=== PATIENT | female | born 1970 | race Caucasian/White ===

== ENCOUNTER → 2018-12-28 | Outpatient (CLI) | payer BC ==
[~2018-12-28] MED LIST: BLAC20TA PO; FEXO180T81 PO; MELA3TAB2 PO; OMEP20CA10 PO; PSEU120T9 PO; VIT500LI PO; VITA1TAB19 PO
[2018-12-28 14:47] LABS: BASO # 0.1 x10^3/uL (0.0-0.2); BASO % 1 % (0-3); EOS # 0.4 x10^3/uL (0.0-0.7); EOS % 9 % (0-3); HEMATOCRIT 40.4 % (36.0-47.0); HEMOGLOBIN 13.6 g/dL (12.0-15.5); LYMPH # 1.7 x10^3/uL (1.0-4.8); LYMPH % 33 % (24-48); MEAN CORPUSCULAR HEMOGLOBIN 28 pg (25-35); MEAN CORPUSCULAR HGB CONC 34 g/dL (31-37); MEAN CORPUSCULAR VOLUME 82 fL (79-100); MONO # 0.4 x10^3/uL (0.0-1.1); MONO % 7 % (0-9); NEUT # 2.5 x10^3uL (1.8-7.7); NEUT % 50 % (31-73); PLATELET COUNT 148 x10^3/uL (140-400); RED BLOOD COUNT 4.95 x10^6/uL (3.50-5.40); RED CELL DISTRIBUTION WIDTH 14.9 % (11.5-14.5)
[2018-12-28 14:50] LABS: BILIRUBIN,URINE NEGATIVE (NEG); CLARITY,URINE CLEAR; COLOR,URINE YELLOW; NITRITE,URINE NEGATIVE (NEG); PROTEIN,URINE NEGATIVE (NEG-TRACE); UROBILINOGEN,URINE 0.2 mg/dL (0.2 mg/dL)
--- NOTE | 2018-12-28 14:53 | EKG ---
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 No previous ECG available for comparison Electronically Signed On 12-30-2018 14:11:56 CDT by Neil Bashir
[2018-12-28 14:58] LABS: BACTERIA,URINE FEW /HPF (0-FEW); RBC,URINE 0 /HPF (0-2); SQUAMOUS EPITHELIAL CELL,UR FEW /LPF; WBC,URINE RARE /HPF (0-4)
[2018-12-28 15:11] LABS: ALBUMIN 3.7 g/dL (3.4-5.0); ALBUMIN/GLOBULIN RATIO 1.1 (1.0-1.7); CREATININE 0.8 mg/dL (0.6-1.0); GFR 75.9; POTASSIUM 3.5 mmol/L (3.5-5.1); TOTAL BILIRUBIN 0.4 mg/dL (0.2-1.0)
--- NOTE | 2019-01-04 10:23 | NUR ---
FAXED PRE-OP TEST REPORTS TO 'S OFFICE FOR REVIEW 12/29/2018 AT 1209 AND RECEIVED TRANSMITTAL CONFIRMATION. PRELIMINARY EKG REPORT WAS REVIEWED BY WALDEMAR MARIE RN,ANESTHESIA TEAM 12/29/2018 AT 1205 AND WAS OKAY,ALSO FINAL REPORT IN 01/01/2019 AT 1035 AND WAS OKAY TOO. [facility] AT 'S OFFICE CALLED BACK 12/29/2018 AT 1730 AND NOTIFIED OF FAXING PRE OP TEST REPORTS ALONG WITH WALDEMAR MARIE RN REVIEWED EKG STATED ABOVE. FAXED EKG AND URINE CULTURE'S FINAL REPORTS TO 'S OFFICE 01/01/2019 AT 0950 AND RECEIVED TRANSMITTAL CONFIRMATION.
== END | disposition home or self-care (01) ==
LOC: SURGPAT 13:59
PROVIDERS: ATTEND Obstetrics & Gynecology
DX: Z01.818 Encounter for other preprocedural examination (principal); R94.31 Abnormal electrocardiogram [ECG] [EKG]
CPT/HCPCS: 36415; 80053; 81001; 85025; 87086; 93005

== ENCOUNTER 2019-01-07 07:04 | Observation (INO) | payer BC ==
[2019-01-07] VITALS (7 sets, daily range): BP systolic 99–126; BP diastolic 45–128
[~2019-01-07] VITALS: Ht 162.6 cm; Wt 80.2 kg
[~2019-01-07 07:04] MED LIST changes: +HYDROmorphone 2 MG/ML VIAL IV PRN; +LIDOCAINE 1% PF 2 ML VIAL. ID PRN; +MORPHINE SULFATE 2 MG/ML VIAL. IV PRN; +ONDANSETRON PF 4 MG/2 ML VIAL. IV PRN; +PROCHLORPERAZINE 10 MG/2 ML VIAL. IV PRN; +fentaNYL PF VIAL 100 MCG/2 ML VIAL IV PRN
[2019-01-07] MEDS ORDERED: BUPIVACAINE-EPI 0.25%-1:200000 MPF 30 ML VIAL. ONE (07:09)
[2019-01-07] MEDS ORDERED: ESTROGENS, CONJ VAGINAL CREAM 30GM TUBE. ONE (07:09)
[2019-01-07] MEDS: IV RINGERS,LACTATED 1000ML 1,000 ML IV SCH ×2 (07:40→11:52)
[2019-01-07] MEDS ORDERED: fentaNYL PF VIAL 100 MCG/2 ML VIAL ONE (08:00)
[2019-01-07] MEDS ORDERED: ONDANSETRON PF 4 MG/2 ML VIAL. ONE (08:00)
[2019-01-07] MEDS ORDERED: PROPOFOL 20 ML IV ONE (08:00)
[2019-01-07] MEDS ORDERED: DEXAMETHASONE SOD PHOS 4 MG/ML VIAL ONE (08:00)
[2019-01-07] MEDS ORDERED: ROCURONIUM 100 MG/10 ML VIAL. ONE (08:01)
[2019-01-07] MEDS ORDERED: INDIGOTINDISULFONATE SODIUM 40 MG/5 ML AMPUL. IV ONE (09:00)
[2019-01-07 10:42] LABS: U PREG PATIENT NEGATIVE (NEG)
[2019-01-07] MEDS ORDERED: MAG HYDROX/ALUMINUM HYD/SIMETH 30 ML ORAL.SUSP PO PRN (10:45)
[2019-01-07] MEDS ORDERED: ONDANSETRON PF 4 MG/2 ML VIAL. IV PRN (10:45)
[2019-01-07] MEDS ORDERED: ZOLPIDEM 5 MG TABLET. PO PRN (10:45)
[2019-01-07] MEDS ORDERED: NALOXONE 0.4 MG/ML VIAL. IV PRN (10:45)
[2019-01-07] MEDS ORDERED: 0.9 % SODIUM CHLORIDE 10 ML DISP.SYRIN. IV PRN (10:45)
[2019-01-07] MEDS ORDERED: MAGNESIUM HYDROXIDE 2,400 MG/30 ML ORAL.SUSP. PO PRN (10:45)
[2019-01-07] MEDS ORDERED: CALCIUM CARBONATE 500 MG TAB.CHEW PO PRN (10:45)
[2019-01-07] MEDS ORDERED: diphenhydrAMINE HCL 25 MG CAPSULE PO PRN (10:45)
[2019-01-07] MEDS ORDERED: SIMETHICONE 80 MG TAB.CHEW PO PRN (10:45)
[2019-01-07] MEDS ORDERED: LACTULOSE 20 GM/30 ML SOLUTION. PO PRN (10:45)
[2019-01-07] MEDS ORDERED: diphenhydrAMINE 50 MG/ML VIAL IV PRN (10:45)
[2019-01-07] MEDS ORDERED: MORPHINE SULFATE 2 MG/ML VIAL. IV PRN (10:45)
--- NOTE | 2019-01-07 10:45 | PDOC ---
BRIEF OPERATIVE NOTE Date: Jan 07, 2019 Pre-Op Diagnosis menorrhagia, fibroids Post-Op Diagnosis same Procedure Performed LAVH/bilateral salpingectomy Surgeon Dr. Katherine Cespedes Salesperson [employer] CHRISTINA Colmenares Anesthesiologist Dr. Elliott Anesthesia Type: General Blood Loss 60cc IV Fluid 400cc Urine Output 100cc clear via crowe Specimens Obtained cervix, uterus, bilateral tubes Findings enlarged RV uterus, evidence of fallop rings with prior sterilization, some left sided adhesions to tube and post cul de sac, normal bilateral ovaries Complications none Operative Note [id number] KATHERINE CESPEDES MD Jan 07, 2019 10:45
[2019-01-07] MEDS: fentaNYL PF VIAL 100 MCG/2 ML VIAL IV PRN ×2 (11:16→11:44)
--- NOTE | 2019-01-07 12:24 | OP ---
DATE OF SURGERY: 01/07/2019 PREOPERATIVE DIAGNOSES: Menorrhagia and enlarged fibroid uterus. POSTOPERATIVE DIAGNOSES: Menorrhagia and enlarged fibroid uterus. PROCEDURE: Laparoscopic-assisted vaginal hysterectomy, bilateral salpingectomy. SURGEON: Rodger Cespedes M.D. MIXER CRANE OPERATOR: first radha Colmenares. ANESTHESIOLOGIST: Cordell Elliott MD. ANESTHESIA: General. ESTIMATED BLOOD LOSS: 60 mL. URINE OUTPUT: 100 mL clear via Selby catheter. IV FLUIDS: 400 mL of crystalloid. SPECIMENS: Cervix, uterus, bilateral tubes. FINDINGS: Enlarged retroverted uterus, evidence of prior sterilization with Falope rings, some left-sided adhesions to the left tube and cul-de-sac, normal bilateral ovaries. COMPLICATIONS: None. DESCRIPTION OF PROCEDURE: This patient was taken to the operating room where general anesthesia was placed. The patient was placed in dorsal lithotomy position in [facility]. The patient's abdomen and vagina were prepped and draped in the normal sterile fashion and a Selby catheter had been inserted under sterile technique. Upon my arrival, a timeout was performed. Once everyone agreed and she had received her preoperative antibiotics, a bivalve speculum was placed in the patient's vagina. A single-tooth tenaculum was used to grasp the anterior lip of the cervix. A 10 mL of 0.25% Marcaine with epinephrine was used to circumferentially inject around the cervix for both hemodissection and hemostatic purposes later. The Valtchev uterine manipulator was placed through the endocervical os, locked on the single tooth tenaculum and the bivalve speculum was then removed. Top gloves were discarded and changed. Attention was then turned to the abdomen. A supraumbilical skin incision was made with the scalpel. A curved Debo was used to dissect through the subcuticular layer to the fascia. The 5 mm Visiport was used to directly enter the abdominal cavity. Opening patient pressure was 4-5 mmHg. Carbon dioxide gas was used to then appropriately insufflate the abdominal cavity to maintain a pressure of 15 mmHg. The patient was placed in Trendelenburg position. Right and left lower quadrant ports were placed under direct visualization, making sure they were clear on the inside, transilluminating the anterior abdominal wall with the light, making a small incision and placing the 5 mm trocar under direct visualization without difficulty. A 4-5 mL of air was placed in the cuff of the trocar. The camera was then moved to the lateral port to examine the midline port. It was clear and the air was used to insufflate the cuff on this port as well. At this point, the left tube and ovary were identified. Again, you could see prior evidence of Falope ring sterilization. The tube was elevated, you could see the ureter coursing below the ovaries on both sides as well. So going below the tube, above the ovary, preserving the ovaries per patient request, a salpingectomy was performed with the LigaSure, then crossing the left uterine ovarian pedicle and the left round ligament. The bladder flap was started sharply on this side. Once we got through the round ligament and taking down the anterior bladder peritoneum. This was done exactly the same on the right side, elevating the right tube and ovary, finding the ureter, going above the ovary, below the tube as it was normal and the patient wished to retain her ovaries, doing a salpingectomy with the LigaSure, cauterizing and cutting, crossing the right uterine ovarian pedicle and then the right round ligament, going down and further meeting that bladder flap, obtaining the uterine vasculature on both sides, and then going down through the cardinal and broad ligaments to the level of the uterosacrals. There were some mild adhesions posteriorly on the left side, but the center was clear where we are going to do the colpotomy. So, I did leave it as it was lateral, but the uterus was free and blanched. So, all instruments were removed from the abdomen and attention was turned vaginally. At this point, the single tooth and Valtchev were removed. The patient's legs were elevated in a high lithotomy and weighted speculum was placed in the patient's vagina. Thyroid Kaitlyn clamps were placed on the anterior and posterior lips of the cervix respectively. A scalpel was used to make a circumferential incision in the cervix. An open Ray-Marisol 4 x 4 was used to gently push up the anterior bladder peritoneum. Posterior cul-de-sac was sharply entered with the curved Knight scissors and a #0 Vicryl stitch was used to secure the posterior peritoneum here to the vaginal cuff. It was tagged with a curved Debo clamp. The needle was cut and passed off. The short weighted vaginal speculum was removed and replaced with the long weighted Suraj speculum in the posterior cul-de-sac. At this point, curved Angelita clamps x 2 were placed on the patient's left uterosacral ligament where they were doubly clamped with curved Angelita's, cut with Knight scissors and suture ligated x 2 with 0 Vicryl. Second one was taken through the vaginal cuff securing uterosacral ligament to the vaginal cuff, tagging it with a straight Debo clamp, cutting and passing the needle off. This was done exactly the same on the patient's right side, double clamping the uterosacrals with curved Angelita's, cutting with curved Knight scissors and suture ligating x 2 with 0 Vicryl, taking the second one through the vaginal cuff securing uterosacral ligament to the vaginal cuff, tagging it with a straight Debo clamp and cutting and passing the needle off. Once we were assured to be in anteriorly, the curved mixture, the right angle clamp was taken around the remaining pedicle on the right side. The vaginal LigaSure was used to cauterize and cut the remaining pedicle. This was done exactly the same on the left side. Cervix, uterus, bilateral tubes were delivered in total and passed off for permanent pathology. The anterior bladder peritoneum was easily grasped with a long Allis. Sponge stick was used to examine the pedicles. There was some slight bleeding from the left side, bit it was easily seen. The ____ were used to grasp it gently and the cautery was used to easily cauterize it under direct visualization. Once that was assured to be done, the long weighted Suraj speculum was removed and replaced with the short weighted vaginal speculum. A 2-0 Vicryl was taken through the anterior bladder peritoneum, left uterosacral ligament, posterior peritoneum and right uterosacral ligament, thus closing the peritoneum in a pursestring like fashion. Once this was done, the right and left uterosacral tags were clipped. A full length 2-0 Vicryl was used to close the cuff in an anterior to posterior running locked fashion and tied to that posterior cuff tag. Sponge stick was used to examine the vaginal cuff and it was completely hemostatic. Once hemostasis was assured, all gloves were discarded and changed. All instruments were removed. The bottom counts were correct x 2 by OR personnel. At this point, a second look was taken above. The patient was placed back in Trendelenburg. Gas was re-insufflated. Copious irrigation revealed hemostasis just because we have seen some slight oozing from where that adhesion was posteriorly. Initially, we got Tisseel, but at first time it would not spray right, so I just got Aakash and placed it over the cuff with excellent results and it remained white and powdery with nothing welling up. The right and left pericolic gutters were clear. The cuff remained hemostatic. Gas was released from all 3 trocars. The right and left trocars were removed under direct visualization. Gas was released from the umbilical port. All three port sites were being closed with 4-0 Monocryl and Steri-Strips then injected with local. The patient is currently being awakened from anesthesia and there were no complications. RODGER CESPEDES MD DR: KAELA/jacinda JOB#: [id number] / [id number]
[2019-01-07] MEDS: oxyCODONE/APAP 5/325 1 TAB TABLET PO PRN ×2 (15:42→19:31)
[2019-01-08] MEDS: oxyCODONE/APAP 5/325 1 TAB TABLET PO PRN (02:06)
[2019-01-08 05:58] VITALS: BP 98/66
[2019-01-08] MEDS: HYDROcodone/APAP 5/325MG 1 TAB TABLET PO PRN ×2 (07:40→09:49)
--- NOTE | 2019-01-08 08:54 | PDOC ---
SURGICAL PROGRESS NOTE Subjective doing well without complaints. tolerating regular diet, ambulating well, voiding without catheter, scant vb. Wants to go home today Vital Signs Vital Signs Date Time Temp Pulse Resp B/P (MAP) Pulse Ox O2 Delivery O2 Flow Rate FiO2 01/08/19 07:40 18 Room Air 01/08/19 05:58 98.5 87 98/66 (77) 98.5 01/07/19 20:00 96 01/07/19 12:20 10.0 I&O Intake and Output 01/08/19 06:59 Intake Total 1400 ml Output Total 160 ml Balance 1240 ml Intake Oral 450 ml IV Total 950 ml Output Urine Total 100 ml Estimated Blood Loss 60 ml PATIENT HAS A VIRK: No General: Alert, Oriented X3, Cooperative, No acute distress HEENT: Atraumatic Heart: Regular rate Abdomen: Soft, No tenderness, Other (all port sites c/d/i) Extremities: No clubbing, No cyanosis, No edema, No tenderness/swelling Skin: No rashes, No breakdown, No significant lesion Neuro: Normal speech Psych/Mental Status: Mental status NL, Mood NL Labs Laboratory Tests Test 01/07/19 07:10 01/07/19 07:24 Urine Test Negative (NEG) Bedside Urine HCG, Qualitative Hcg negative (Negative) Assessment/Plan POD#1 s/p LAVH/bilateral salpingectomy Routine PO care d/c to home later today NPV x 6 weeks light/limited activity x 2 weeks keep scheduled follow up in one week with me call or return sooner for any other questions or concerns not limited to but including pain unrelieved with pain meds, increased or unexplained vaginal bleeding or T>100.4 will write [place] as had some itching with oxy here and tolerated hydro better here in the hospital RODGER ZIEGLER MD Jan 08, 2019 08:54
--- NOTE | 2019-01-08 08:57 | PDOC3 ---
Discharge Summary Visit Information Date of Admission: Jan 07, 2019 Date of Discharge: Jan 08, 2019 Final Diagnosis menorrhagia, fibroids Brief Hospital Course Allergies Allergies Coded Allergies Type Severity Reaction Last Updated Verified No Known Drug Allergies 01/07/19 No Vital Signs Vital Signs Date Time Temp Pulse Resp B/P (MAP) Pulse Ox O2 Delivery O2 Flow Rate FiO2 01/08/19 07:40 18 Room Air 01/08/19 05:58 98.5 87 98/66 (77) 98.5 01/07/19 20:00 96 01/07/19 12:20 10.0 Lab Results Laboratory Tests Test 01/07/19 07:10 01/07/19 07:24 01/08/19 07:11 Urine Test Negative (NEG) Bedside Urine HCG, Qualitative Hcg negative (Negative) Hematocrit 37.0 % (36.0-47.0) Laboratory Tests Test 01/08/19 07:11 Hematocrit 37.0 % (36.0-47.0) Brief Hospital Course Ms. Pham is a 48 old female who presented with fibroids and menorrhagia. She underwent an LAVH with bilateral salpingectomy yesterday without complications. She has had an unremarkable postoperative course. She will go home today. She is tolerating po pain meds, fluids and food, passing flatus, ambulating well, voiding without the catheter. Discharge Information Condition at Discharge: Improved Follow Up: Weeks Disposition/Orders: D/C to Home Scheduled Black Cohosh Root (Menopause Support) 20 Mg Tablet, 20 MG PO DAILY for MENOPAUSE SYMPTOMS, (Reported) Entered as Reported by: HERNANDEZ DEL VALLE on 12/28/181417 Last Taken: Unknown Dose on 12/30/18 Last Action: HELD on 01/07/19732 by RODGER ZIEGLER Fexofenadine Hcl (Marti Allergy) 180 Mg Tablet, 1 TAB PO DAILY for ALLERGIES, #30 Ref 2 (Reported) Entered as Reported by: HERNANDEZ DEL VALLE on 12/28/181417 Last Taken: Unknown Dose on 01/06/19 Last Action: HELD on 01/07/19732 by RODGER ZIEGLER Melatonin (Melatonin) 3 Mg Tablet, 1 TAB PO QHS for INSOMNIA, #30 Ref 2 (Reported) Entered as Reported by: HERNANDEZ DEL VALLE on 12/28/181417 Last Taken: Unknown Dose on 01/05/19 Last Action: HELD on 01/07/19732 by RODGER ZIEGLER Omeprazole (Omeprazole) 20 Mg Capsule.dr, 1 CAP PO DAILY for REFLUX, #30 Ref 5 (Reported) Entered as Reported by: HERNANDEZ DEL VALLE on 12/28/181417 Last Taken: Unknown Dose on 12/30/18 Last Action: Converted on 01/07/19732 by RODGER ZIEGLER Pseudoephedrine Hcl (Sudafed 12-Hour) 120 Mg Tablet.er, 120 MG PO DAILY for ALLERGIES, (Reported) Entered as Reported by: HERNANDEZ DEL VALLE on 12/28/181417 Last Taken: Unknown Dose on 01/06/19 Last Action: HELD on 01/07/19732 by RODGER ZIEGLER Vit C/Ascorbate Ca/Ascorb Sod (Vitamin C 500 Mg/15 Ml Liquid) 500 Mg/15 Ml Liquid, 500 MG PO DAILY for SUPPLEMENT, (Reported) Entered as Reported by: HERNANDEZ DEL VALLE on 12/28/181417 Last Taken: Unknown Dose on 12/30/18 Last Action: HELD on 01/07/19732 by RODGER ZIEGLER Vitamin B Complex (B Complex) 1 Each Tablet, 1 EACH PO DAILY for SUPPLEMENT, (Reported) Entered as Reported by: HERNANDEZ DEL VALLE on 12/28/181417 Last Taken: Unknown Dose on 12/30/18 Last Action: HELD on 01/07/19732 by RODGER ZIEGLER Patient Instructions Patient Instructions POD#1 s/p LAVH/bilateral salpingectomy Routine PO care d/c to home later today NPV x 6 weeks light/limited activity x 2 weeks keep scheduled follow up in one week with me call or return sooner for any other questions or concerns not limited to but including pain unrelieved with pain meds, increased or unexplained vaginal bleeding or T>100.4 will write [place] as had some itching with oxy here and tolerated hydro better here in the hospital RODGER ZIEGLER MD Jan 08, 2019 08:57
[2019-01-08 09:05] LABS: CALCIUM 8.7 mg/dL (8.5-10.1); CREATININE 0.9 mg/dL (0.6-1.0); GFR 66.3; POTASSIUM 3.8 mmol/L (3.5-5.1)
[2019-01-08] MEDS ORDERED: ceFAZolin 2GM PREMIX 2 GM/50 ML BAG IV ONE (12:00)
[2019-01-08] MEDS ORDERED: PANTOPRAZOLE 40 MG TABLET.DR. PO SCH (12:00)
[2019-01-08 12:29] VITALS: BP 100/52
--- NOTE | 2019-01-08 12:30 | NUR ---
Discharge Discharge instructions given to the patient and family at this time, no questions or concerns noted. IV dc'd patient tolerated well. To follow up with DR Cespedes in 1 week, appointment made prior to admission. patient going to eat lunch then to leave in wheelchair, will monitor.
--- NOTE | 2019-01-11 18:06 | PATHOLOGY ---
[facility] Accession Number: [id number] . 01 Material submitted: . uterus - CERVIX, UTERUS, BILATERAL TUBES. Modifiers: bilateral . 01 Clinical history: . Menorrhagia, fibroids . 02 Diagnosis: Uterus and bilateral attached fallopian tubes, laparoscopic assisted vaginal hysterectomy with bilateral salpingectomy: - Leiomyomas, uterine corpus, intramural, multiple, the largest measuring 2.8 cm in greatest dimension (uterine weight 129 grams). - Chronic inflammation of exocervix. - Proliferative endometrium. - Endometrial polyp. - Adenomyosis, uterine corpus, subbasal, focal. - Status post tubal ligation and congestion of bilateral fallopian tubes. - Paratubal cysts, bilateral. (JPM:derek; 01/11/2019) QMS/01/11/2019 . 02 Comment: There is no atypia or evidence of malignancy. (JPM:derek; 01/11/2019) . 02 Electronically signed: . Luis Chang MD, Pathologist NPI- [id number] . 01 Gross description: . The specimen is received in formalin, labeled "PhamKatarzyna, cervix, uterus, bilateral tubes" and consists of a 129 g uterus with attached cervix measuring 10.0 x 5.8 x 4.5 cm with attached bilateral fimbriated fallopian tubes consisting of right (6.0 cm in length and up to 0.5 cm in diameter) and left (5.8 cm in length and up to 0.5 cm in diameter). Both tubes have a plastic ring at each cornu. The uterine serosa is otto-brown, smooth, shiny with multifocal areas of hemorrhage. The slit-like 1.3 cm cervical os is surrounded by ragged otto ectocervical mucosa. It is bivalved revealing a corrugated endocervical canal measuring 4.1 cm in length. Endometrial cavity is triangular measuring 4.7 cm in length and 3.1 width which is lined by a pink attenuated endometrium measuring less than 0.1 cm. There is a polyp in the upper uterine cavity measuring 1.1 cm. The myometrium is pink-otto with multiple anterior and posterior intramural nodules measuring between 0.4 cm and 2.8 cm. The cut surfaces of the nodules are homogeneous pink-white, whorled without hemorrhage, necrosis, or calcifications. . Both fimbriated fallopian tubes are pink-gerardo, smooth, shiny with paratubal cyst measuring up to 1.1 cm. Sectioning each reveals a well-defined lumen and no gross lesions. Paraffiner sections are submitted as follows: . A1: Anterior cervix A2: Posterior cervix A3: Anterior endomyometrium A4: Posterior endomyometrium A5: Nodules A6: Polyp A7: Right fallopian tube A8: Left fallopian tube (SDY; 01/08/2019) SYU/SYU . 02 Pathologist provided ICD-10: D25.1, N72, N84.0, N80.0, N83.8 . 02 CPT . 086447 Specimen Comment: A courtesy copy of this report has been sent to Specimen Comment: [phone]. Specimen Comment: Report sent to Performed at: 01 [facility] [address] [facility] [address], [place] [id number] MD Mikhail Platt MD Phone: [phone] Performed at: 02 [facility] [address], [place] [id number] MD Luis Chang MD Phone: [phone]
== END 2019-01-08 12:53 | disposition home or self-care (01) ==
LOC: SURG 07:04 → 3 NORTH 11:18
PROVIDERS: ADMIT Obstetrics & Gynecology; ATTEND Obstetrics & Gynecology
DX: N92.0 Excessive and frequent menstruation with regular cycle (principal); N85.2 Hypertrophy of uterus; D25.1 Intramural leiomyoma of uterus
CPT/HCPCS: 36415; 58550; 80048; 81025; 85014; 86850; 86900; 86901; 88307; A7015; G0378; G0379; J0696; J0780; J1100; J2405; J2704; J3010; J7030; J7120